=== PATIENT | male | born 1985 | race African-American/Black ===

== ENCOUNTER 2021-11-29 13:14 | Emergency (ER) | payer SELFPAY ==
[~2021-11-29] VITALS: Ht 177.8 cm; Wt 80.0 kg
[2021-11-29 13:16] VITALS: BP 116/78
== END 2021-11-29 13:29 | disposition left against medical advice (07) ==
LOC: ER 13:28
DX: Z53.21 Procedure and treatment not carried out due to patient leaving prior to being seen by health care provider (principal)
CPT/HCPCS: 99283